=== PATIENT | female | born 1950 | race Caucasian/White ===

== ENCOUNTER 2020-08-03 08:24 | Day surgery (SDC) | payer MEDICARE, OTHER ==
[~2020-08-03] VITALS: Ht 176.5 cm; Wt 85.4 kg
[~2020-08-03 08:24] MED LIST: CALC1TAB PO; EPINEPHRINE 1 MG/ML, 1ML ONE; LIDOCAINE/PF 1%, 30ML ONE; MINERAL OIL 10 ML VIAL MC ONE; MV M PO; [UNRECOGNIZED DRUG - OTHER] PO; hydroeye
[2020-08-03 09:22] VITALS: BP 160/88
[2020-08-03] MEDS ORDERED: CHLORHEXIDINE 15 ML UDC ONE (09:29)
[2020-08-03] MEDS ORDERED: LACTATED RINGERS 1,000 ML IV SCH (09:30)
[2020-08-03] MEDS ORDERED: CHLORHEXIDINE 15 ML UDC MM ONE (09:30)
[2020-08-03] MEDS ORDERED: FENTANYL PF 250 MCG/5ML ONE (10:05)
[2020-08-03] MEDS ORDERED: MIDAZOLAM 1 MG/ML, 2ML ONE (10:05)
[2020-08-03] MEDS ORDERED: BUPIVACAINE/PF 0.5% ONE (10:18)
[2020-08-03] MEDS ORDERED: PROMETHAZINE 25 MG/ML, 1ML IVPush PRN (10:30)
[2020-08-03] MEDS ORDERED: HALOPERIDOL 5 MG/ML IV PRN (10:30)
[2020-08-03] MEDS ORDERED: morphine SULFATE 10 MG/ML, 1ML IVPush PRN (10:30)
[2020-08-03] MEDS ORDERED: MEPERIDINE/PF 25MG/0.5ML IVPush PRN (10:30)
[2020-08-03] MEDS ORDERED: ACETAMINOPHEN 325 MG TABLET PO PRN (10:30)
[2020-08-03] MEDS ORDERED: hydrALAzine 20 MG/ML, 1ML IV PRN (10:30)
[2020-08-03] MEDS ORDERED: FENTANYL PF 100 MCG/2ML IV PRN (10:30)
[2020-08-03] MEDS ORDERED: OXYcodone 5 MG/5 ML ORAL.SOL UDC PO PRN (10:30)
[2020-08-03] MEDS ORDERED: HYDROmorphone 1 MG/ML, 1ML INJ IVPush PRN (10:30)
[2020-08-03] MEDS ORDERED: LABETALOL 5MG/ML, 20ML IV PRN (10:30)
[2020-08-03] MEDS ORDERED: BUPIVACAINE/PF-EPI 0.5% 1:200K INFIL ONE (11:01)
[2020-08-03] MEDS ORDERED: NEOSTIGMINE 1 MG/ML, 10ML ONE (11:04)
[2020-08-03] MEDS ORDERED: ONDANSETRON 2MG/ML, 2ML ONE (11:04)
[2020-08-03] MEDS ORDERED: EPHEDRINE 50 MG/ML, 1ML ONE (11:04)
[2020-08-03] MEDS ORDERED: GLYCOPYRROLATE 0.2MG/1ML, 5ML ONE (11:04)
[2020-08-03] MEDS ORDERED: CEFAZOLIN 1,000 MG ONE (11:04)
[2020-08-03] MEDS ORDERED: DEXAMETHASONE 4 MG/ML, 1ML ONE (11:04)
[2020-08-03] MEDS ORDERED: ROCURONIUM 10MG/ML,5ML ONE (11:04)
[2020-08-03] MEDS ORDERED: PROPOFOL 10 MG/ML, 20ML ONE (11:04)
== END 2020-08-03 14:15 | disposition home or self-care (01) ==
LOC: OUT 08:24
PROVIDERS: ATTEND Plastic Surgery
DX: C44.729 Squamous cell carcinoma of skin of left lower limb, including hip (principal); Z20.822 Contact with and (suspected) exposure to COVID-19; Z72.89 Other problems related to lifestyle; Z79.899 Other long term (current) drug therapy; Z98.890 Other specified postprocedural states
CPT/HCPCS: 11604; 15100; 88307; 88331; 93005; J0171; J0690; J1100; J2250; J2405; J2704; J2710; J3010; J7120; U0003